=== PATIENT | male | born 1945 | race Caucasian/White ===

== ENCOUNTER 2019-01-24 14:14 | Emergency (ER) | payer MEDICARE, MEDICAID ==
[~2019-01-24] VITALS: Ht 177.8 cm; Wt 73.0 kg
--- NOTE | 2019-01-24 14:30 | NUR ---
patient placed in bed, no distress noted, denies pain or discomfort. awaiting for md escoto.
--- NOTE | 2019-01-24 15:00 | NUR ---
CALLED [facility], , SPOKE WITH JENNIFER TO CONFIRM IF PT WAS A RESIDENT THERE, HE SAID PT WAS A RESIDENT THERE AND HE WAS TRYING TO FIND MORE INFO AND WILL FAX US WHAT HE FINDS.
--- NOTE | 2019-01-24 15:02 | NUR ---
PATIENT HAS BEEN WAITING IN THE ER WAITING ROOM FOR APPROX 8 HOURS. NO ENDORSEMENT FROM SNF. PLACED A CALL TO [facility] [place] [facility]ULT[facility] TIMES BUT FIRST DENIED KNOWING THE PATIENT. ON THE SECOND CALL, SPOKE WITH JENNIFER AGAIN. AND STATED THE PATIENT RESIDED IN THE FACILITY, WAS UNSURE WHEN THE PATIENT WAS DISCHARGED. PER JENNIFER HE WILL FAX OVER [employer]. PATIENT IN STABLE CONDITION, A/OX3. NAD. WILL MONITOR.
--- NOTE | 2019-01-24 16:00 | NUR ---
spoke with deo [facility] -- will come for eval. case management following up with gareth crockett regarding admission
--- NOTE | 2019-01-24 16:00 | NUR ---
REFUSING LABS AND XRAYS. EXPLAINED RISKS AND BENEFITS, STILL REFUSED. PATIENT IS BECOMING AGITATED. DR. LANGSTON WENT TO THE ROOM TO TALK TO PATIENT AND PATIENT VERBALLY THREATENED HIM.
[2019-01-24] MEDS ORDERED: ZIPRASIDONE MESYLATE 20 MG/VIAL VIAL IM ONE ×2 (16:18→16:30)
[2019-01-24] MEDS ORDERED: WATER FOR INJECTION,STERILE 10 ML ONE (16:20)
--- NOTE | 2019-01-24 16:41 | NUR ---
PATIENT REFUSING VITAL SIGNS.
[2019-01-24] MEDS ORDERED: DIVA250T4 PO (16:49)
[2019-01-24] MEDS ORDERED: MAG30ORA PO (16:49)
[2019-01-24] MEDS ORDERED: TEMA15CA5 PO (16:49)
[2019-01-24] MEDS ORDERED: ENOX40DI SQ (16:49)
[2019-01-24] MEDS ORDERED: SIME80TA15 PO (16:49)
[2019-01-24] MEDS ORDERED: SENN-168 PO (16:49)
[2019-01-24] MEDS ORDERED: DIVA500T2 PO (16:49)
[2019-01-24] MEDS ORDERED: OLAN2.5T3 PO (16:49)
[2019-01-24] MEDS ORDERED: GUAI5SYR PO (16:49)
--- NOTE | 2019-01-24 16:56 | NUR ---
CALLED [facility] FOR TRANSPORT TO [facility], ETA 1830, TRIP#[id number]
--- NOTE | 2019-01-24 16:57 | NUR ---
REPORT GIVEN TO IZZY TOLLIVER: PATIENT'S ADMISSION TO [facility]. JOHN CLEARED FOR PSYCH EVAL. Addendum: 01/24/19 at 1700 by ROALCANCES CORRECTION: PATIENT SEEN BY JOHN AND HAS BEEN CLEARED FOR PSYCH. PATIENT DENIES SI/HI AT THIS TIME.
--- NOTE | 2019-01-24 19:12 | NUR ---
Patient still refusing vitals. Patient discharged to [facility] in stable condition. Written and verbal after care instructions given. Patient verbalizes understanding of instruction but refused to sign paperwork. Report given to brake adjuster and left the facility.
[2019-01-24 19:16] VITALS: BP 156/87
== END 2019-01-24 19:17 ==
LOC: ER 14:17
DX: S00.81XA Abrasion of other part of head, initial encounter (principal); R45.1 Restlessness and agitation; Z88.1 Allergy status to other antibiotic agents; X58.XXXA Exposure to other specified factors, initial encounter; Y93.89 Activity, other specified; Y92.89 Other specified places as the place of occurrence of the external cause; Y99.8 Other external cause status; Z79.899 Other long term (current) drug therapy
CPT/HCPCS: 93005; 96372; 99285; J3486